=== PATIENT | female | born 1985 | race Caucasian/White ===

== ENCOUNTER 2020-09-12 | Emergency (ER) | payer OTHER ==
[2020-09-12 01:16] LABS: HEMOGLOBIN 14.2 gm/dl (12.3-15.3); RED BLOOD COUNT 4.53 M/UL (4.00-5.10); WHITE BLOOD COUNT 8.5 K/UL (4.5-11.0)
[2020-09-12 01:33] LABS: BUN/CREATININE RATIO 13 (0-10)
[2020-09-12] MEDS ORDERED: MIRALAX 119 GR119 GM PO (04:17)
[2020-09-12] MEDS ORDERED: SOF-LAX100 MG PO (04:17)
== END 2020-09-12 04:24 | disposition home or self-care (01) ==
LOC: ER1
PROVIDERS: Emergency Medicine
DX: K59.00 Constipation, unspecified (principal); F17.200 Nicotine dependence, unspecified, uncomplicated
CPT/HCPCS: 74018; 80053; 81001; 82550; 82553; 83690; 83874; 84484; 84703; 85025; 96374; 96375; 99284; J1885; J2405; Q9967

== ENCOUNTER → 2020-09-30 | Outpatient (CLI) | payer OTHER ==
[~2020-09-30] MED LIST: MIRALAX 119 GR119 GM PO; NAPROXEN500 MG PO; SOF-LAX100 MG PO
== END ==
LOC: US 09-29 09:45 → EXRD 08:00
DX: R10.84 Generalized abdominal pain (principal)
CPT/HCPCS: 76700

== ENCOUNTER 2020-10-17 20:26 | Emergency (ER) | payer OTHER ==
[~2020-10-17 20:26] MED LIST changes: -NAPROXEN500 MG PO
[2020-10-17] MEDS ORDERED: NAPROXEN500 MG PO (22:24)
== END 2020-10-17 22:30 | disposition home or self-care (01) ==
LOC: ER1 20:26
DX: S93.401A Sprain of unspecified ligament of right ankle, initial encounter (principal); S93.601A Unspecified sprain of right foot, initial encounter; J45.909 Unspecified asthma, uncomplicated; F17.210 Nicotine dependence, cigarettes, uncomplicated; X50.1XXA Overexertion from prolonged static or awkward postures, initial encounter
CPT/HCPCS: 73590; 73610; 73630; 99283